=== PATIENT | male | born 1955 | race Caucasian/White ===

== ENCOUNTER 2018-10-16 16:40 | Inpatient (IN) | payer BC ==
[~2018-10-16] VITALS: Ht 182.9 cm; Wt 110.0 kg
[2018-11-17 18:50] LABS: BASO # 0.1 (0.0-0.2); BASO % 0.8 % (0.0-2.0); EOS # 0.2 (0.0-0.7); EOS % 1.7 % (0-4.0); GRAN # 5.6 (1.4-6.5); GRAN % 61.9 % (42.2-75.2); HEMATOCRIT 46.6 % (42.0-52.0); LYMPH # 2.5 (1.2-3.4); MEAN CELL VOLUME 88 fl (80.0-100.0); MEAN CORPUSCULAR HEMOGLOBIN 30 pg (27.0-31.0); MEAN CORPUSCULAR HGB CONC 34 g/dl (33.0-37.0); MEAN PLATELET VOLUME 9.5 fl (7.4-10.4); MONO # 0.7 (0.1-0.6); MONO % 7.4 % (1.7-9.3); PLATELET COUNT 315 K/mm3 (130-400); RED BLOOD COUNT 5.28 M/mm3 (4.20-5.60); REDCELL DISTRIBUTION WIDTH-CV 12.9 % (11.5-14.5)
[2018-11-17 19:02] LABS: ALBUMIN 4.1 gm/dL (3.5-5.0); BILIRUBIN,TOTAL 0.5 mg/dL (0.0-1.0); CALCIUM 9.3 mg/dL (8.4-10.2); CREATININE, serum 1.17 (0.66-1.25); POTASSIUM 4.3 mmol/L (3.4-5.0); TOTAL PROTEIN 7.4 gm/dL (6.4-8.2)
[2018-11-18] VITALS (13 sets, daily range): BP systolic 107–146; BP diastolic 60–85; PULSE 58–79; TEMP 98–98.7
--- NOTE | 2018-11-18 12:00 | NUR ---
Patient up to room 348 by bed from OR. Drowsy but arouses to voice and touch. Assessment complete. Post op fluids infusing via gravity to left hand. Post op VSS. Nichols to dependent drainage with pink urine present. Abdominal lap sites x6 with edges well approximated. Assessment complete. Nick drain to left quadrant, no drainage present. Spouse at bedside. SCDs to BLE. Will continue to monitor.
--- NOTE | 2018-11-18 18:55 | NUR ---
Patient has been up ambulating in oneil, steady gait. Currently sitting up in recliner. Tolerating clear liquids. Nichols maintained to dependent drainage with pink urine noted, occasional clots. Denies pain or further needs at this time. Will report off to sheet metal duct installer helper.
--- NOTE | 2018-11-18 23:04 | NUR ---
Report received from MARISELA Agrawal. Patient noted to ambulate frequently with . Stated he had some breakthrough pain in which PRN Tramadol was given. This was effective. Catheter in place draining reddish urine with small clots noted. VANCE drain noted to not be compressed on assessment. This nurse compressed it and small amount of red drainage noted in the tubing. All lap sites remain free from drainage. Patient resting in bed. Will continue to monitor
[2018-11-19 04:50] VITALS: BP 113/66; PULSE 72; TEMP 98.1
--- NOTE | 2018-11-19 05:09 | NUR ---
Patient has rested well throughout the night. No further complaints of breakthrough pain. Patient denies any further needs. VANCE drain noted to have scant amount of drainage in bulb. Bulb compressed to further suction for drainage. Will continue to monitor.
[2018-11-19 06:26] LABS: CALCIUM 8.4 mg/dL (8.4-10.2); CREATININE, serum 0.95 (0.66-1.25); POTASSIUM 4.1 mmol/L (3.4-5.0)
--- NOTE | 2018-11-19 06:58 | NUR ---
Report given to MARISELA Agrawal.
[2018-11-19 07:11] LABS: BASO % 0.2 % (0.0-2.0); EOS % 0.2 % (0-4.0); GRAN # 9.1 (1.4-6.5); GRAN % 71.6 % (42.2-75.2); HEMATOCRIT 38.2 % (42.0-52.0); LYMPH # 2.5 (1.2-3.4); LYMPH % 19.6 % (20.0-51.0); MEAN CELL VOLUME 89 fl (80.0-100.0); MEAN CORPUSCULAR HEMOGLOBIN 30 pg (27.0-31.0); MEAN CORPUSCULAR HGB CONC 34 g/dl (33.0-37.0); MEAN PLATELET VOLUME 9.8 fl (7.4-10.4); MONO % 7.9 % (1.7-9.3); PLATELET COUNT 267 K/mm3 (130-400); REDCELL DISTRIBUTION WIDTH-CV 12.8 % (11.5-14.5)
--- NOTE | 2018-11-19 08:00 | NUR ---
Notified Dr. Valladares that vicky drain has had minimal output since procedure yesterday. Drain occassionally decompresses by its self.
[2018-11-19 08:02] VITALS: BP 126/61; PULSE 69; TEMP 97.9
--- NOTE | 2018-11-19 08:07 | NUR ---
Patient in bed resting. Alert and oriented x 3. Shift assessment complete. Denies pain at this time. Spouse at bedside. Lap x6 with edges well approximated. Nick drain to left quadrant with scant serosanguinous drainage present. Nichols to dependent drainage with clear maria elena urine present. Occassional clots noted. SCDs to BLE. Dr. Valladares in to see patient. INT to left hand. Advanced to general diet. Denies further needs at this time.
--- NOTE | 2018-11-19 11:18 | NUR ---
Patient up ambulating in oneil with spouse, steady gait.
[2018-11-19 12:11] VITALS: BP 110/58; PULSE 66; TEMP 98.1
--- NOTE | 2018-11-19 13:11 | NUR ---
MELODIE met with the patient and his , Lashawn. The pt lives in [place] with Lashawn and their son. The pt does not use any DME and reports independence with ADLs. The pt's PCP is Dr. Gardner and the pt receives his medication from [facility]. The pt reports no difficulties obtaining his medications. The pt does not have advanced directives in the EMR, but does have them completed. The pt plans to return home upon discharge. There are no additional needs at this time.
--- NOTE | 2018-11-19 13:40 | NUR ---
Patient called out to nurses station, would like something for pain 6/10 to abdomen. Given prn dose of medication.
[2018-11-19 15:31] VITALS: BP 110/64; PULSE 72; TEMP 98.6
--- NOTE | 2018-11-19 16:13 | NUR ---
Contacted Dr. Valladares, Patients vicky drain continues to have minimal drainage. Per Dr. Valladares, discontinue drain.
--- NOTE | 2018-11-19 17:00 | NUR ---
Discontinued vicky drain to left quadrant. Suture removed then discontinued, tolerated procedure well. Gauze and tegaderm dressing applied to site. No further needs at this time.
--- NOTE | 2018-11-19 18:33 | NUR ---
Patient in recliner, spouse at bedside throughout the day. Has been up ambulating, steady gait. Patient independent in room. Tolerating General diet. Nichols maintained to dependent drainage with clear pink urine present, occassional clots noted. Has requested additional pain medication x1 this shift. Gauze dressing to previous VANCE site is CDI. Denies pain or further needs at this time. Will report off to power and recovery shift engineer.
--- NOTE | 2018-11-19 19:15 | NUR ---
Report received from MARISELA Agrawal.
[2018-11-19 19:32] VITALS: BP 130/59; PULSE 56; TEMP 98.4
[2018-11-19 23:26] VITALS: BP 133/70; PULSE 62; TEMP 98.4
[2018-11-20 03:32] VITALS: BP 137/73; PULSE 59; TEMP 98.1
[2018-11-20 06:04] LABS: HEMATOCRIT 37.3 % (42.0-52.0); HEMOGLOBIN 12.8 g/dl (13.5-18.0)
--- NOTE | 2018-11-20 07:05 | NUR ---
Report given to MARISELA Louis.
[2018-11-20 07:53] VITALS: BP 114/70; PULSE 62; TEMP 98
--- NOTE | 2018-11-20 09:30 | NUR ---
Made phone calls to the nurses and aides who took care of patient for the past two days. There was only 300ml of urine charted in [address] Valladares was wanting to know actual output, notified him of output that was 900 on dayshift yesterday and 300 for shift mgr. Patient has been doing well this am. He has been up walking in the hallways. Denies pain and nausea. Discussed plan for discharge once Dr Valladares puts in the order. No other changes at this time. Call light within reach.
[2018-11-20] MEDS ORDERED: CIPRO 500MG TA500 MG PO (10:05)
[2018-11-20] MEDS ORDERED: SENNA-S 50 MG-81 TAB PO (10:06)
--- NOTE | 2018-11-20 11:20 | NUR ---
Patient is discharging home. Discussed discharge instructions with patient and his . Was able to answer and resolve any questions they had. Explained they have prescriptions to get filled. Explained when follow up appointment is and where. Copies of discharge instructions sent with patient. Explained how to care for jaquez and activity restrictions. Patient is wanting to get on a tractor and work in the story. Explained he will have to wait until his follow up appointment and discuss having the restrictions lifted at that time. Copies of discharge instructions sent with patient. All belongings packed up and sent with patient. Patient walked out with this nurse.
--- NOTE | 2018-11-20 11:23 | NUR ---
Initial visit; Patient thanked Real Estate Professional for looking in on him and offering spiritual care, especially prayer.
== END 2018-11-20 11:30 | disposition home or self-care (01) | DRG 708 ==
LOC: SURG 11-18 05:42 → INPTSU 11-18 05:42 → SURG 11-18 07:30
PROVIDERS: ADMIT Urology
PROC: 8E0W4CZ Robotic Assisted Procedure of Trunk Region, Percutaneous Endoscopic Approach (ICD-10-PCS; 2018-11-18)
PROC: 0VT04ZZ Resection of Prostate, Percutaneous Endoscopic Approach (ICD-10-PCS; principal; 2018-11-18 07:30)
DX: C61 Malignant neoplasm of prostate (principal); I10 Essential (primary) hypertension
CPT/HCPCS: A9284; J0690; J1100; J1170; J1885; J2405; J2704; J3010; J7120

== ENCOUNTER → 2018-11-17 | Outpatient (CLI) | payer BC ==
[~2018-11-17] MED LIST: CIPRO 500MG TA500 MG PO; SENNA-S 50 MG-81 TAB PO
== END ==
LOC: COL.LAB 18:07
DX: Z01.89 Encounter for other specified special examinations (principal)